=== PATIENT | male | born 1950 | race Caucasian/White ===

== ENCOUNTER 2023-08-25 06:09 | Day surgery (SDC) | payer MEDICARE, OTHER, SELFPAY ==
[2023-08-25] VITALS (10 sets, daily range): BP systolic 114–198; BP diastolic 67–97; BMI 31.1
[2023-08-25] MEDS: LOW STRENGTH ASPIRIN 81 MG PO (06:57)
[2023-08-25] MEDS: NSS 278 ML IV (06:58)
--- NOTE | 2023-08-25 09:18 | ITS.CL.CATH ---
[employer] - Catheterization
Cardiac Catheterization
Procedure Report:
CARDIAC CATHETERIZATION REPORT
Date of Procedure: 08/25/2023
Referring: Mannie Landis MD
Indication: Exertional dyspnea with abnormal stress test
HEMODYNAMIC DATA
AO: 165/94
LV: 165/18
LEFT VENTRICULOGRAPHY: Normal left ventricular wall motion with EF 54%. Incidentally noted is mild dilation of the aortic root and borderline dilation of the ascending aorta
ASCENDING AORTOGRAPHY: Mild aortic root dilation and mild dilation of the ascending aorta
CORONARY ANGIOGRAPHY
Dominance: Right
Left Main: Normal
LAD: Normal
Circumflex: The circumflex gives rise to large OM1 and a large OM 2 before terminating with a twig like OM 3. There is 40% proximal OM 2 stenosis
RCA: 30% mid RCA stenosis with otherwise trivial luminal disease
Closure Device: 6 Italian Angio-Seal RFA. The procedure was started via the right radial artery and we were able to do left ventriculography, aortography, and left coronary angiography via this approach. However,due to significant innominate
tortuosity and spasm, we were unable to cannulate the RCA from the right radial artery approach and switched to a right femoral approach for RCA angiography which was easily accomplished with a JR4 diagnostic catheter.
Radiation (mGy): 694
DAP (cm2.Gy): 68.4
Fluoroscopy time: 12.1 minutes
CONCLUSIONS
1: Systemic hypertension
2: Normal ventricular wall motion with EF 54%
3. Mild dilation of the aortic root and ascending aorta
4. Mild nonobstructive CAD
5. Recommend aspirin, statin to keep LDL less than 70 and antihypertensive therapy as needed
Copy to: Mannie Landis MD, Brandon Mccann MD
Slade Bangura MD, [facility], [facility]
--- NOTE | 2023-08-25 11:54 | W.PN.UPDATE ---
Update Note
Progress Note Update
72 y/o M s/p cardiac catheterization. He feels well following his procedure: no CP or SOB. Tolerating diet. Radial and femoral cath sites C/D/I, no hematoma.
F/U with Dr. Mannie Landis in 2-4 weeks. Their office will call the patient with an appointment.
Stable for discharge.
== END 2023-08-25 11:58 | disposition home or self-care (01) ==
LOC: CATH 06:09
PROVIDERS: ATTENDING PHYSICIAN Internal Medicine Cardiovascular Disease; FAMILY PHYSICIAN Internal Medicine; OTHER PHYSICIAN Internal Medicine Cardiovascular Disease
DX: I25.10 Atherosclerotic heart disease of native coronary artery without angina pectoris (principal); R94.39 Abnormal result of other cardiovascular function study; R06.09 Other forms of dyspnea; I77.810 Thoracic aortic ectasia; I10 Essential (primary) hypertension; Z79.82 Long term (current) use of aspirin
CPT/HCPCS: 93458; 93567; C1760; C1894; Q9967